=== PATIENT | female | born 1990 | race Asian ===

== ENCOUNTER 2017-03-13 08:00 | Outpatient (CLI) | payer MEDICAID ==
[2017-03-14 11:16] LABS: TEST RESULT REPORT (())
== END 2017-03-13 08:01 | disposition home or self-care (01) ==
LOC: LAB.N 08:00
PROVIDERS: ATTEND Nurse Practitioner Gerontology
DX: Z11.3 Encounter for screening for infections with a predominantly sexual mode of transmission (principal)
CPT/HCPCS: 36415; 81599; 86592; 87389; 87491; 87591

== ENCOUNTER 2017-12-05 08:00 | Outpatient (CLI) | payer MEDICAID ==
[2017-12-06 15:32] LABS: HIV AG/AB 4TH GEN NON-REACTIVE (NON-REACTIVE)
== END 2017-12-05 08:01 | disposition home or self-care (01) ==
LOC: LAB.N 08:00
PROVIDERS: ATTEND Nurse Practitioner Gerontology
DX: Z11.3 Encounter for screening for infections with a predominantly sexual mode of transmission (principal)
CPT/HCPCS: 36415; 81599; 86592; 87389; 87491; 87591

== ENCOUNTER 2017-12-19 08:00 | Outpatient (CLI) | payer BC, MEDICAID | END 2017-12-19 08:01 | disposition home or self-care (01) | LOC: LAB.R 08:00 | PROVIDERS: ATTEND Obstetrics & Gynecology | DX: Z11.3 Encounter for screening for infections with a predominantly sexual mode of transmission (principal) | CPT/HCPCS: 87491; 87591 ==

== ENCOUNTER 2018-02-06 08:29 | Outpatient (CLI) | payer MEDICAID ==
[2018-02-06 13:57] LABS: THYROID STIMULATING HORMONE 0.54 uIU/mL (0.34-5.60)
[2018-02-06 14:25] LABS: FOLLICLE STIMULATING HORMONE 1.5 mIU/mL
[2018-02-06 14:26] LABS: LUTEINIZING HORMONE 7.36 mIU/mL
== END 2018-02-06 08:30 | disposition home or self-care (01) ==
LOC: LAB.N 08:29
PROVIDERS: ATTEND Obstetrics & Gynecology
DX: N97.9 Female infertility, unspecified (principal)
CPT/HCPCS: 36415; 83001; 83002; 84144; 84443

== ENCOUNTER 2018-02-20 15:04 | Outpatient (CLI) | payer BC, MEDICAID ==
[2018-02-20 15:22] LABS: BASOPHILS % (AUTO) 0.8 %; EOSINOPHILS # (AUTO) 0.3 10^3/uL (0.0-0.7); EOSINOPHILS % (AUTO) 4.8 %; HGB - HEMOGLOBIN 13.1 g/dL (12.0-16.0); LYMPHOCYTES # (AUTO) 1.9 10^3/uL (1.5-3.5); LYMPHOCYTES % (AUTO) 29.9 %; MEAN CORPUSCULAR HEMOGLOBIN 31.2 pg (27.0-31.0); MEAN CORPUSCULAR HGB CONC 33.7 g/dL (32.0-36.0); MEAN CORPUSCULAR VOLUME 92.4 fL (81.0-99.0); MEAN PLATELET VOLUME 7.4 fL (7.9-10.8); MONOCYTES # (AUTO) 0.6 10^3/uL (0.0-1.0); MONOCYTES % (AUTO) 9.3 %; NEUTROPHILS # (AUTO) 3.4 10^3/uL (1.5-6.6); NEUTROPHILS % (AUTO) 55.2 %; PLT - PLATELET COUNT 302 10^3/uL (130-450); RED BLOOD COUNT 4.19 10^6/uL (4.20-5.40); RED CELL DISTRIBUTION WIDTH 12.9 % (12.0-15.0); WHITE BLOOD COUNT 6.2 x10^3/uL (4.8-10.8)
[2018-02-20 16:35] LABS: HCG UR QUAL NEGATIVE
== END 2018-02-20 15:05 | disposition home or self-care (01) ==
LOC: LAB 15:04
PROVIDERS: ATTEND Obstetrics & Gynecology
DX: Z01.812 Encounter for preprocedural laboratory examination (principal); N94.6 Dysmenorrhea, unspecified
CPT/HCPCS: 36415; 81025; 85025

== ENCOUNTER 2018-02-21 08:37 | Day surgery (SDC) | payer BC, MEDICAID ==
--- NOTE | 2018-02-21 07:15 | PREOP HISTORY & PHYSICAL ---
DATE OF SERVICE: 02/20/2018 Physician: Morgan Reinoso MD PREOP HISTORY AND PHYSICAL OF 02/20/2018 FOR ANTICIPATED PROCEDURE 02/21/2018 IDENTIFICATION: Patient is a 27-year-old G0, P0, female whose last menstrual period was 02/11/2018. CHIEF COMPLAINT: Painful pelvic pain and painful periods. HISTORY OF PRESENT ILLNESS: Patient states that she has pain with her periods, which is roughly 8/10. She will take Midol for this. She is able to function and able to work this, and she currently does not have to plan her life around her periods. She states this is quite severe and is getting worse with time. She also states that her menstrual flows anywhere from 5-7 days. She will pass clots for 2-3 of these days. She will pass some of these which are gonzalo size. She also complains of pelvic pain. PAST MEDICAL HISTORY: Patient denies any hypertensive, diabetic, cardiac, or pulmonary disease. PAST SURGICAL HISTORY: None. ALLERGIES: NONE KNOWN. MEDICATIONS: None. HABITS: Patient smokes 5 cigarettes per day. Denies use of alcohol or street drugs or tetrahydrocannabinol. SOCIAL HISTORY: Patient is currently single. She has a college education. She works as a software implementation specialist. FAMILY HISTORY: Negative for breast, ovarian or cervical cancer. She does have a maternal history of hypertension as well as mild stroke. PHYSICAL EXAMINATION GENERAL: Patient well-developed, well-nourished female. She is in no acute distress at this time. VITAL SIGNS: Normal. HEENT: Pupils are equal, round. Extraocular muscles are intact. There is no evidence of any scleral icterus. Mouth is clear. Thyroid is not palpably enlarged. HEART: Regular rate and rhythm without murmurs. LUNGS: Lung carey are clear without rales or wheezes. BACK: No spine or CVA tenderness noted. ABDOMEN: Unremarkable at this time. PELVIC: Examination performed on December 19 showed normal external genitalia. The vaginal vault was that of a nulliparous woman. The vaginal mucosa was noted to be normal without evidence of any abnormalities. Uterus is retroverted midline and no masses. This duplicated some of the pain she was complaining of the adnexa; however showed no masses, nontender, normal size. ASSESSMENT AND PLAN: Patient is a 27-year-old G0, P0, female with symptoms which are compatible for either endometriosis or adenomyosis. At this particular time, we will perform diagnostic laparoscopy with possible lysis of adhesion or cauterization of endometriotic implants. R&B, QA&A. TD: 02/20/2018 14:36 MTDD
[2018-02-21] MEDS ORDERED: ceFAZolin 2 GM/50 ML 2 GM/50 ML BAG IV ONE (09:01)
[2018-02-21] MEDS ORDERED: LACTATED RINGERS 1,000 ML IV ONE ×2 (09:21→12:10)
--- NOTE | 2018-02-21 09:24 | ANESTHESIA ---
Pre-Anesthesia VS, & Labs - Diagnosis dysmenorrhea suspect endemetriosis - Procedure Diagnostic Laparoscopy, cauterization of endometriosis,possible appendectomy Vital Signs: Temp Pulse Resp BP Pulse Ox 36.7 C 16 139/88 H 97 02/21/18 09:03 02/21/18 09:03 02/21/18 09:03 02/21/18 09:03 Height 5 ft 2 in Weight (kg) 66.4 kg - NPO >8 hours Last Fluid Intake: 4oz H2O at 7am - Is Patient ?: No Home Medications and Allergies Home Medications: Ambulatory Orders Medication Instructions Recorded Confirmed Cetirizine [ZyrTEC] 10 mg PO DAILY #20 tablet 02/04/16 Dexamethasone [Decadron] 4 mg PO DAILY #5 tablet 02/04/16 Fluconazole [Diflucan] 100 mg PO ONCE #2 tablet 02/04/16 Hydrocodone/Acetaminophen [[place] 1 each PO Q6H PRN #20 tablet 02/04/16 5-325 Tablet] Sulfamethoxazole/Trimethoprim 1 each PO BID #10 tablet 02/04/16 [Bactrim Ds Tablet] Allergies/Adverse Reactions: Allergies Allergy/AdvReac Type Severity Reaction Status Date / Time No Known Drug Allergies Allergy Verified 02/04/16 20:25 Anes History & Medical History - Anesthetic History Anesthesia Complications: reports: Other-see comment (never had surgery) Family history of Anesthesia Complications: Denies Family history of Malignant Hyperthermia: Denies - Airway/Dental Dental: WNL Neck Mobility: Normal Mallampati classification: I Thyromental Distance: greater than 6 cm - Medical History Cardiovascular: reports: None Pulmonary: reports: None Gastrointestinal: reports: None Urinary: reports: None Neuro: reports: Migraines Musculoskeletal: reports: None Endocrine/Autoimmune: reports: None Skin: reports: None Smoking Status: Current some day smoker Psychosocial: reports: Alcohol (rarely) Exam Respiratory: Lungs clear Cardiovascular: Regular rate, No murmurs Mental/Cognitive Status: Alert/Oriented X3 Plan Anesthesia Type: General Consent for Operative Procedure(s) Verified and Reviewed: Yes Code Status: Attempt Resuscitation ASA classification: 1-Healthy patient Is this case an emergency?: No
[2018-02-21] MEDS ORDERED: BUPIVACAINE 0.25%-EPI 1:200000 PF 30 ML VIAL ONE (09:41)
[2018-02-21] MEDS ORDERED: SCOPOLAMINE PATCH TOP ONE (10:15)
[2018-02-21] MEDS ORDERED: METHYLENE BLUE 0.5% 50 MG/10 ML AMPULE ONE (10:23)
[2018-02-21] MEDS ORDERED: BUPIVACAINE 0.25%-EPI 1:200000 PF 30 ML VIAL SUBQ ONE ×2 (11:07)
[2018-02-21] MEDS ORDERED: METHYLENE BLUE 0.5% 50 MG/10 ML AMPULE IR ONE ×2 (11:14)
[2018-02-21] MEDS ORDERED: KETOROLAC 30 MG/ML VIAL IVP ONE (12:15)
[2018-02-21] MEDS ORDERED: PROPOFOL 200 MG/20 ML VIAL IVP ONE (12:15)
[2018-02-21] MEDS ORDERED: GLYCOPYRROLATE 1 MG/5 ML VIAL IVP ONE (12:15)
[2018-02-21] MEDS ORDERED: fentaNYL 100 MCG/2 ML VIAL IVP ONE (12:15)
[2018-02-21] MEDS ORDERED: MIDAZOLAM 2 MG/2 ML VIAL IVP ONE (12:15)
[2018-02-21] MEDS ORDERED: ONDANSETRON 4 MG/2 ML VIAL IVP ONE (12:15)
[2018-02-21] MEDS ORDERED: NEOSTIGMINE 1 MG/1 ML 10 ML MDV IVP ONE (12:15)
[2018-02-21] MEDS ORDERED: DEXAMETHASONE 4 MG/ML VIAL IVP ONE (12:15)
[2018-02-21] MEDS ORDERED: ROCURONIUM 50 MG/5 ML VIAL IVP ONE (12:15)
[2018-02-21] MEDS: HYDROmorphone 1 MG/ML CARPUJECT ONE ×2 (12:18→12:23)
[2018-02-21] MEDS ORDERED: ACETAMINOPHEN 1,000 MG/100 ML 100 ML IV ONE (12:37)
[2018-02-21] MEDS: fentaNYL 100 MCG/2 ML VIAL ONE ×2 (13:07→13:19)
[2018-02-21 15:11] VITALS: BP 119/79
--- NOTE | 2018-02-21 18:06 | OPERATIVE REPORT ---
DATE OF SERVICE: 02/21/2018 Physician: Morgan Reinoso MD PREOPERATIVE DIAGNOSIS: Pelvic pain, dysmenorrhea. POSTOPERATIVE DIAGNOSIS: Pelvic pain, pelvic endometriosis, Oses-Easl-Sogupb perihepatic adhesions, patent fallopian tubes. PROCEDURE: Diagnostic laparoscopy with chromopertubation, peritoneal biopsy and fulguration of pelvic peritoneal endometriosis. SURGEON: Morgan Reinoso M.D. ANESTHESIA: Maria Esther Lee CRNA, general via endotracheal tube. FINDINGS: Multiple endometriosis peritoneal implants around the ovarian fossa as well as the cul-de-sac of Tejinder. The tubes were noted to be patent with good flow of methylene blue stained saline through both tubes. She also had perihepatic adhesions from previous infections of the pelvis. Her appendix appeared to be normal. COMPLICATIONS: None. ESTIMATED BLOOD LOSS: 10 mL. SPECIMENS TO PATHOLOGY: Left uterosacral peritoneum. DESCRIPTION OF PROCEDURE: Following adequate endotracheal anesthesia, the patient was placed in the dorsal lithotomy position in [facility]. Pelvic examination under anesthesia revealed the uterus which is anterior roughly 7 cm in size. The adnexa is not palpably enlarged. She was then prepped and draped in the usual fashion. A timeout was performed, at which time concerns were addressed. A speculum was placed in the vagina. The cervix was visualized, grasped with a single-tooth tenaculum. At this point, the coiled tubing operator's gloves were changed and then following local anesthesia with 0.25% Marcaine, a stab wound was made in the subumbilical area. Two towel clamps were then placed periumbilically and then a 5 mm trocar was placed under direct visualization. Care was to assure that it was entered in the peritoneal cavity. The trocar was removed and a 30-degree laparoscope was inserted. Two additional ports were placed both in the left and right lower quadrants following local anesthesia with 0.25% Marcaine and incision with a #11 blade. Both of these were placed under direct visualization. The pelvis was inspected with the aforementioned findings. Ovaries, uterus as well as cul-de-sac were visualized. Dilute methylene blue was then injected through the acorn uterine manipulator and there was evidence of good flow through both fallopian tubes. The appendix was visualized as well as photographed. The liver was visualized and the perihepatic adhesions were noted. These were not lysed because of the high probability of them reforming. Then, a biopsy was taken from a suspected endometriosis site on the right uterosacral ligament. Cautery was used for hemostasis. Electrocautery was then used to cauterize the multiple endometriotic implants in the ovarian fossa bilaterally as well as in the cul-de-sac. At this point, there was no evidence of any further bleeding. The pelvis was irrigated with copious amounts of sterile saline. There was no evidence of any bleeding from the biopsy site. The trocars were removed under direct visualization. As much of the CO2 was allowed to escape from the subumbilical port as possible. Then, this was also removed. The incisions were closed with 4-0 Monocryl subcuticular with Dermabond being used for the incisions themselves. There was some oozing from the subumbilical port, so this was dressed with a folded 4 x 4 with Tegaderm. The uterine manipulator was removed from the vagina. The patient tolerated the procedure well and was taken to the recovery in stable condition. Sponge and needle counts were correct. TD: 02/21/2018 12:57 GREGORIA
== END 2018-02-21 08:38 | disposition home or self-care (01) ==
LOC: SDS 08:37
PROVIDERS: ATTEND Obstetrics & Gynecology
PROC: 0U5F4ZZ Destruction of Cul-de-sac, Percutaneous Endoscopic Approach (ICD-10-PCS; 2018-02-21)
PROC: 3E0P8KZ Introduction of Other Diagnostic Substance into Female Reproductive, Via Natural or Artificial Opening Endoscopic (ICD-10-PCS; 2018-02-21)
PROC: 0UB44ZX Excision of Uterine Supporting Structure, Percutaneous Endoscopic Approach, Diagnostic (ICD-10-PCS; principal; 2018-02-21 10:00)
DX: N94.6 Dysmenorrhea, unspecified (principal); R10.2 Pelvic and perineal pain; N80.3 Endometriosis of pelvic peritoneum; K66.0 Peritoneal adhesions (postprocedural) (postinfection); F17.210 Nicotine dependence, cigarettes, uncomplicated
CPT/HCPCS: 49321; 58350; 58662; J0131; J0690; J1170; J3490; J7120

== ENCOUNTER 2019-06-04 17:31 | Emergency (ER) | payer BC, MEDICAID ==
[2019-06-04 17:39] VITALS: BP 145/102
[2019-06-04 17:51] LABS: BILIRUBIN,URINE NEGATIVE (NEGATIVE); GLUCOSE, URINE (UA) NEGATIVE (NEGATIVE); KETONES,URINE (UA) NEGATIVE (NEGATIVE); LEUKOCYTE ESTERASE, URINE NEGATIVE (NEGATIVE); NITRITE,URINE NEGATIVE (NEGATIVE); OCCULT BLOOD,URINE MODERATE (NEGATIVE); PROTEIN,URINE NEGATIVE (NEGATIVE); UROBILINOGEN,URINE 0.2 (NORMAL) E.U./dL (NORMAL)
[2019-06-04 18:01] LABS: BASOPHILS # (AUTO) 0.1 10^3/uL (0.0-0.1); EOSINOPHILS # (AUTO) 0.2 10^3/uL (0.0-0.7); EOSINOPHILS % (AUTO) 3.6 %; HGB - HEMOGLOBIN 14.1 g/dL (12.0-16.0); LYMPHOCYTES # (AUTO) 1.6 10^3/uL (1.5-3.5); LYMPHOCYTES % (AUTO) 25.8 %; MEAN CORPUSCULAR HEMOGLOBIN 31.1 pg (27.0-31.0); MEAN CORPUSCULAR HGB CONC 33.8 g/dL (32.0-36.0); MEAN CORPUSCULAR VOLUME 92.1 fL (81.0-99.0); MEAN PLATELET VOLUME 10.1 fL (7.9-10.8); MONOCYTES # (AUTO) 0.6 10^3/uL (0.0-1.0); MONOCYTES % (AUTO) 9.4 %; NEUTROPHILS # (AUTO) 3.6 10^3/uL (1.5-6.6); NEUTROPHILS % (AUTO) 59.9 %; PLT - PLATELET COUNT 285 10^3/uL (130-450); RED BLOOD COUNT 4.53 10^6/uL (4.20-5.40); RED CELL DISTRIBUTION WIDTH 12.1 % (12.0-15.0); WHITE BLOOD COUNT 6.1 x10^3/uL (4.8-10.8)
[2019-06-04 18:05] LABS: CLARITY,URINE CLEAR (CLEAR); HCG UR QUAL NEGATIVE
[2019-06-04 18:06] LABS: BACTERIA,URINE Few /HPF (None Seen); SPERM,URINE PRESENT; SQUAMOUS EPITHELIAL CELL,UR MANY Squamous (<= Few)
[2019-06-04 18:14] LABS: ALBUMIN 4.9 g/dL (3.2-5.5); ALBUMIN/GLOBULIN RATIO 1.5 (1.0-2.2); BILIRUBIN,TOTAL 0.4 mg/dL (0.2-1.0); CALCIUM 9.9 mg/dL (8.5-10.3); CREATININE 0.7 mg/dL (0.4-1.0); TOTAL PROTEIN 8.1 g/dL (6.7-8.2)
--- NOTE | 2019-06-04 18:50 | ED Physician Documentation ---
History of Present Illness - Stated complaint Stated Complaint: FEMALE /ABD, BACK PX - Chief complaint Chief Complaint: Abd Pain - History obtained from History obtained from: Patient - History of Present Illness Pain level max: 3 Pain level now: 2 - Additonal information Additional information: 28-year-old female presents to the emergency department stating that she gets occasional lower abdominal cramping. This is been going on for several months. Nothing seems to make it better or worse. She had intercourse with her signific ant other today and noticed a small amount of bleeding afterwards. Has a history of endometriosis. Denies any changes in sexual partners. No itching. No discharge. Review of Systems Constitutional: denies: Fever, Chills GI: denies: Nausea, Vomiting, Diarrhea : denies: Now EGA Skin: denies: Rash Musculoskeletal: denies: Neck pain, Back pain Neurologic: denies: Headache PD PAST MEDICAL HISTORY - Past Medical History Neuro: Migraines - Past Surgical History Past Surgical History: No - Present Medications Home Medications: Ambulatory Orders Medication Instructions Recorded Confirmed Cetirizine [ZyrTEC] 10 mg PO DAILY #20 tablet 02/04/16 Fluconazole [Diflucan] 100 mg PO ONCE #2 tablet 02/04/16 Hydrocodone/Acetaminophen [[place] 1 each PO Q6H PRN #20 tablet 02/04/16 5-325 Tablet] Sulfamethoxazole/Trimethoprim 1 each PO BID #10 tablet 02/04/16 [Bactrim Ds Tablet] dexAMETHasone [Decadron] 4 mg PO DAILY #5 tablet 02/04/16 Fluconazole [Diflucan] 150 mg PO ONCE #1 tablet 06/04/19 Metronidazole [Flagyl] 500 mg PO BID #14 tablet 06/04/19 - Allergies Allergies/Adverse Reactions: Allergies Allergy/AdvReac Type Severity Reaction Status Date / Time No Known Drug Allergies Allergy Verified 02/04/16 20:25 - Social History Does the pt smoke?: Yes Smoking Status: Current some day smoker Does the pt drink ETOH?: No Does the pt have substance abuse?: No - Immunizations Immunizations are current?: Yes PD ED PE NORMAL - Vitals Vital signs reviewed: Yes - General General: Alert and oriented X 3, No acute distress - HEENT HEENT: Moist mucous membranes - Neck Neck: Supple, no meningeal sign - Cardiac Cardiac: RRR - Respiratory Respiratory: No respiratory distress, Clear bilaterally - Abdomen Abdomen: Soft, Non tender, Non distended - Female Female : Pt declined - Derm Derm: Warm and dry - Extremities Extremities: No edema - Neuro Neuro: Alert and oriented X 3 Results - Vitals Vitals: Vital Signs - 24 hr 06/04/19 17:35 Temperature 36.5 C Heart Rate 69 Respiratory 18 Rate Blood Pressure 145/102 H O2 Saturation 100 Oxygen O2 Source Room air - Labs Labs: Laboratory Tests 06/04/19 06/04/19 06/04/19 17:42 17:55 17:55 WBC 6.1 RBC 4.53 Hgb 14.1 Hct 41.7 MCV 92.1 MCH 31.1 H MCHC 33.8 RDW 12.1 Plt Count 285 MPV 10.1 Neut # (Auto) 3.6 Lymph # (Auto) 1.6 [place] # (Auto) 0.6 Eos # (Auto) 0.2 Baso # (Auto) 0.1 Absolute Nucleated RBC 0.00 Nucleated RBC % 0.0 Sodium 140 Potassium 3.8 Chloride 103 Carbon Dioxide 27 Anion Gap 10.0 BUN 13 Creatinine 0.7 Estimated GFR (MDRD) 100 Glucose 95 Calcium 9.9 Total Bilirubin 0.4 AST 25 ALT 22 Alkaline Phosphatase 47 Total Protein 8.1 Albumin 4.9 Globulin 3.2 Albumin/Globulin Ratio 1.5 Lipase 41 Urine Color YELLOW Urine Clarity CLEAR Urine pH 6.0 Ur Specific [place] 1.020 Urine Protein NEGATIVE Urine Glucose (UA) NEGATIVE Urine Ketones NEGATIVE Urine Occult Blood MODERATE H Urine Nitrite NEGATIVE Urine Bilirubin NEGATIVE Urine Urobilinogen 0.2 (NORMAL) Ur Leukocyte Esterase NEGATIVE Urine RBC 6-10 H Urine WBC 4-5 Ur Squamous Epith Cells MANY Squamous H Urine Bacteria Few Urine Sperm PRESENT Ur Microscopic Review INDICATED Urine Culture Comments NOT INDICATED Urine HCG, Qual NEGATIVE C. glabrata (PCR) C. krusei (PCR) Tracey species DNA T. vaginalis (PCR) Bact Vaginosis (PCR) 06/04/19 18:52 WBC RBC Hgb Hct MCV MCH MCHC RDW Plt Count MPV Neut # (Auto) Lymph # (Auto) [place] # (Auto) Eos # (Auto) Baso # (Auto) Absolute Nucleated RBC Nucleated RBC % Sodium Potassium Chloride Carbon Dioxide Anion Gap BUN Creatinine Estimated GFR (MDRD) Glucose Calcium Total Bilirubin AST ALT Alkaline Phosphatase Total Protein Albumin Globulin Albumin/Globulin Ratio Lipase Urine Color Urine Clarity Urine pH Ur Specific [place] Urine Protein Urine Glucose (UA) Urine Ketones Urine Occult Blood Urine Nitrite Urine Bilirubin Urine Urobilinogen Ur Leukocyte Esterase Urine RBC Urine WBC Ur Squamous Epith Cells Urine Bacteria Urine Sperm Ur Microscopic Review Urine Culture Comments Urine HCG, Qual C. glabrata (PCR) NEGATIVE C. krusei (PCR) NEGATIVE Tracey species DNA POSITIVE A T. vaginalis (PCR) NEGATIVE Bact Vaginosis (PCR) POSITIVE A PD MEDICAL DECISION MAKING - ED course Complexity details: reviewed results, re-evaluated patient, considered differential, d/w patient ED course: She declines a pelvic examination. She self swabbed here. I will call her with the results of her vaginal swabs. Patient is comfortable with this plan. Results of the swabs were called to the patient. Diflucan and Flagyl were E prescribed to José Miguel in [place] for her. Patient counseled regarding signs and symptoms for which I believe and urgent re-evaluation would be necessary. Patient with good understanding of and agreement to plan and is comfortable going home at this time This document was made in part using voice recognition software. While efforts are made to proofread this document, sound alike and grammatical errors may occur. Departure - Departure Disposition: 01 Home, Self Care Clinical Impression: Bacterial vaginitis, Vaginal yeast infection Abdominal pain Qualifiers: Abdominal location: unspecified location Qualified Code(s): R10.9 - Unspecified abdominal pain Condition: Good Instructions: ED Abdominal Pain Unkn Cause Follow-Up: Nataliia Lowery WEALTH MANAGEMENT CONSULTANT [Primary Care Provider] - Within 1 week Prescriptions: Fluconazole [Diflucan] 150 mg PO ONCE #1 tablet Metronidazole [Flagyl] 500 mg PO BID #14 tablet Comments: The cause of your symptoms is unclear today. Follow-up with your doctor for further care. We will call you with the results of the swab in a few hours. If you do not hear from us by approximately 10 PM, you can call the emergency department at [phone] and obtain your results. Discharge Date/Time: 06/04/19 19:08
[2019-06-04 21:12] LABS: CANDIDA GROUP DNA POSITIVE (NEGATIVE); CANDIDA KRUSEI DNA NEGATIVE (NEGATIVE); TRICHOMONAS VAGINALIS DNA NEGATIVE (NEGATIVE)
[2019-06-04 22:15] LABS: TRICHOMONAS VAGINALIS DNA NEGATIVE (NEGATIVE)
== END 2019-06-04 19:08 | disposition home or self-care (01) ==
LOC: ED 17:31
DX: N76.0 Acute vaginitis (principal); B96.89 Other specified bacterial agents as the cause of diseases classified elsewhere; B37.3 Candidiasis of vulva and vagina; R10.30 Lower abdominal pain, unspecified; F17.200 Nicotine dependence, unspecified, uncomplicated
CPT/HCPCS: 36415; 80053; 81001; 81003; 81025; 83690; 85025; 87086; 87491; 87591; 87661; 87801; 99283; 99284

== ENCOUNTER 2022-01-16 13:38 | Emergency (ER) | payer BC ==
[2022-01-16 13:48] VITALS: BP 134/100
[2022-01-16] MEDS ORDERED: ONDANSETRON ODT 4 MG TABLET TL STA (13:49)
[2022-01-16 14:03] LABS: BASOPHILS # (AUTO) 0.1 10^3/uL (0.0-0.1); BASOPHILS % (AUTO) 0.8 %; EOSINOPHILS # (AUTO) 0.5 10^3/uL (0.0-0.7); HCT - HEMATOCRIT 42.6 % (37.0-47.0); HGB - HEMOGLOBIN 14.1 g/dL (12.0-16.0); LYMPHOCYTES # (AUTO) 1.9 10^3/uL (1.5-3.5); LYMPHOCYTES % (AUTO) 25.8 %; MEAN CORPUSCULAR HEMOGLOBIN 29.6 pg (27.0-31.0); MEAN CORPUSCULAR HGB CONC 33.1 g/dL (32.0-36.0); MEAN CORPUSCULAR VOLUME 89.3 fL (81.0-99.0); MEAN PLATELET VOLUME 9.4 fL (7.9-10.8); MONOCYTES # (AUTO) 0.5 10^3/uL (0.0-1.0); MONOCYTES % (AUTO) 7.3 %; NEUTROPHILS # (AUTO) 4.4 10^3/uL (1.5-6.6); NEUTROPHILS % (AUTO) 58.8 %; PLT - PLATELET COUNT 306 10^3/uL (130-450); RED BLOOD COUNT 4.77 10^6/uL (4.20-5.40); RED CELL DISTRIBUTION WIDTH 12.9 % (12.0-15.0); WHITE BLOOD COUNT 7.4 x10^3/uL (4.8-10.8)
[2022-01-16 14:33] LABS: ALBUMIN 4.3 g/dL (3.2-5.5); ALBUMIN/GLOBULIN RATIO 1.3 (1.0-2.2); BILIRUBIN,TOTAL 0.7 mg/dL (0.2-1.0); CALCIUM 9.2 mg/dL (8.5-10.3); CREATININE 0.6 mg/dL (0.4-1.0); POTASSIUM 4.1 mmol/L (3.5-5.0); TOTAL PROTEIN 7.5 g/dL (6.7-8.2)
== END 2022-01-16 16:01 | disposition left against medical advice (07) ==
LOC: ED 13:38
DX: Z53.21 Procedure and treatment not carried out due to patient leaving prior to being seen by health care provider (principal)
CPT/HCPCS: 36415; 80053; 80320; 83690; 85025

== ENCOUNTER 2023-11-01 23:59 | Emergency (ER) | payer BC, MEDICAID, OTHER ==
--- NOTE | 2023-11-02 02:14 | ED Physician Documentation ---
History of Present Illness - Stated complaint Stated Complaint: NUMBNESS IN ARMS/LEGS - Chief complaint Chief Complaint: Neuro - History obtained from History obtained from: Patient - Additonal information Additional information: HPI from patient. Patient c/o generalized paresthesias, most pronounced in BUE/BLE, episodic over past few months, becoming more frequent and intense. She had an episode earlier today while driving. No LOC, denies weakness, lightheadedness. No apparent inciting/provoking circumstances or factors, and symptoms resolve without specific intervention. Denies headache, visual changes. Review of Systems Constitutional: denies: Fever, Chills, Sweats Eyes: denies: Loss of vision, Decreased vision, Photophobia Cardiac: reports: Reviewed and negative Respiratory: reports: Reviewed and negative : denies: Incontinent Musculoskeletal: denies: Neck pain, Back pain Neurologic: reports: Numbness. denies: Generalized weakness, Focal weakness, Near syncope, Syncope, Confused, Altered mental status, Headache PD PAST MEDICAL HISTORY - Past Medical History Past Medical History: Yes Cardiovascular: None Respiratory: None Neuro: Migraines Endocrine/Autoimmune: None GI: None PUBLIC RELATIONS STUDIES DIRECTOR: None : None HEENT: None Psych: Anxiety Musculoskeletal: None Derm: None - Past Surgical History Past Surgical History: No - Present Medications Home Medications: Ambulatory Orders Medication Instructions Recorded Confirmed Cetirizine [ZyrTEC] 10 mg PO DAILY #20 tablet 02/04/16 11/02/23 Escitalopram Oxalate 20 mg PO DAILY 11/02/23 11/02/23 - Allergies Allergies/Adverse Reactions: Allergies Allergy/AdvReac Type Severity Reaction Status Date / Time No Known Drug Allergies Allergy Verified 01/16/22 13:48 - Social History Does the pt smoke?: Yes Smoking Status: Current every day smoker Does the pt drink ETOH?: No Does the pt have substance abuse?: No - Immunizations Immunizations are current?: Yes - POLST Patient has POLST: No PD ED PE NORMAL - Vitals Vital signs reviewed: Yes - General General: Alert and oriented X 3, No acute distress, Well developed/nourished - HEENT HEENT: PERRL, EOMI, Moist mucous membranes - Cardiac Cardiac: RRR, No murmur, No gallop, No rub - Respiratory Respiratory: No respiratory distress, Clear bilaterally - Neuro Neuro: Alert and oriented X 3, punching machine operator 2-12 intact, No motor deficit, No sensory deficit, Normal speech Eye Opening: Spontaneous Motor: Obeys Commands Verbal: Oriented GCS Score: 15 Results - Vitals Vitals: Oxygen O2 Source Room air - Labs Labs: Laboratory Tests 11/02/23 11/02/23 02:36 02:36 WBC 11.8 H RBC 4.42 Hgb 13.2 Hct 39.8 MCV 90.0 MCH 29.9 MCHC 33.2 RDW 12.0 Plt Count 336 MPV 9.3 Neut # (Auto) Not Reportable Lymph # (Auto) Not Reportable [place] # (Auto) Not Reportable Eos # (Auto) Not Reportable Baso # (Auto) Not Reportable Absolute Nucleated RBC Not Reportable Total Counted 100 Band Neuts % (Manual) 1 Abnorm Lymph % (Manual) 0 Nucleated RBC % Not Reportable Neutrophils # (Manual) 6.3 Lymphocytes # (Manual) 2.4 Monocytes # (Manual) 1.2 H Eosinophils # (Manual) 1.8 H Basophils # (Manual) 0.2 H Differential Comment MANUAL DIFFERENTIAL Platelet Estimate NORMAL (130-450,000) RBC Morph Micro Appear NORMAL APPEARANCE Sodium 135 Potassium 3.5 Chloride 102 Carbon Dioxide 24 Anion Gap 9.0 BUN 9 Creatinine 0.7 Estimated GFR (MDRD) 97 Glucose 89 Calcium 9.6 - Rads (name of study) CTH Relevant Findings:: Prelim report reviewed, See rad report PD Medical Decision Making - ED course ED course: No concerning nor diagnostic findings on CBC (mild leukocytosis noted), BMP, CTH. Normal PE, normal vital signs (134/74 BP noted). Etiology of symptoms is not apparent at this time. Results reviewed with patient, return precautions discussed. I advised her to contact PMD in the morning to arrange for next available appointment for reevaluation Departure - Departure Disposition: 01 Home, Self Care Clinical Impression: Paresthesia Condition: Good Instructions: ED Paraesthesias Comments: There were no concerning findings on tonight's blood tests; as we discussed, your white blood cell count was very mildly elevated. This is a non-specific finding and it is not elevated to a concerning extent. The CT scan of your head was unremarkable except for inflammation of the sinuses that suggest sinusitis. At this time, specific treatment (such as an antibiotic) is not indicated. The sinus inflammation is also a likely explanation for your mildly elevated white blood cell count. The cause of your symptoms is not apparent at this time. Is very important that you follow-up in the outpatient setting with your primary care provider, next available appointment, for reevaluation. Forms: Activity restrictions Discharge Date/Time: 11/02/23 04:32
[2023-11-02 02:40] LABS: BASOPHILS % (AUTO) 0.8 %; EOSINOPHILS % (AUTO) 10.5 %; HCT - HEMATOCRIT 39.8 % (37.0-47.0); HGB - HEMOGLOBIN 13.2 g/dL (12.0-16.0); LYMPHOCYTES % (AUTO) 22.7 %; MEAN CORPUSCULAR HEMOGLOBIN 29.9 pg (27.0-31.0); MEAN CORPUSCULAR HGB CONC 33.2 g/dL (32.0-36.0); MEAN PLATELET VOLUME 9.3 fL (7.9-10.8); MONOCYTES % (AUTO) 10.4 %; NEUTROPHILS % (AUTO) 55.3 %; PLT - PLATELET COUNT 336 10^3/uL (130-450); RED BLOOD COUNT 4.42 10^6/uL (4.20-5.40); WHITE BLOOD COUNT 11.8 x10^3/uL (4.8-10.8)
[2023-11-02 02:46] LABS: ABNORMAL LYMPHS % (MANUAL) 0 %
[2023-11-02 02:57] LABS: BAND NEUTROPHILS % (MANUAL) 1 %; BASOPHILS # (MANUAL) 0.2 10^3/uL (0-0.1); BASOPHILS % (MANUAL) 2 %; CALCIUM 9.6 mg/dL (8.5-10.3); CREATININE 0.7 mg/dL (0.6-1.3); DIFFERENTIAL COMMENT MANUAL DIFFERENTIAL; EOSINOPHILS # (MANUAL) 1.8 10^3/uL (0-0.7); LYMPHOCYTES # (MANUAL) 2.4 10^3/uL (1.5-3.5); LYMPHOCYTES % (MANUAL) 20 %; MONOCYTES # (MANUAL) 1.2 10^3/uL (0.0-1.0); NEUTROPHILS # (MANUAL) 6.3 10^3/uL (1.5-6.6); PLATELET ESTIMATE, MANUAL NORMAL (130-450,000) (NORMAL); POTASSIUM 3.5 mmol/L (3.5-4.5); RBC MORPHOLOGY (MULTIPLE) NORMAL APPEARANCE (NORMAL)
[2023-11-02 04:36] VITALS: BP 134/74; O2SAT 98
--- NOTE | 2023-11-02 08:07 | CT Report ---
PROCEDURE: Head WO INDICATIONS: paresthesias TECHNIQUE: Noncontrast 4.5 mm thick angled axial sections acquired from the foramen magnum to the vertex. For r adiation dose reduction, the following was used: automated exposure control, adjustment of mA and/or kV according to patient size. COMPARISON: None. FINDINGS: Image quality: Excellent. CSF spaces: Basal cisterns are patent. No extra-axial fluid collections. Ventricles are normal in size and shape. Brain: No midline shift. No intracranial masses or hemorrhage. Rueda-white matter interface is norm al. Skull and face: Calvarium and visualized facial bones are intact, without suspicious lesions. Sinuses: Patchy ethmoid opacification. Minimal bilateral maxillary sinus mucosal thickening. Other pa ranasal sinuses and mastoids are clear. IMPRESSION: No acute intracranial pathology. Mild chronic sinus disease. Findings are concordant with preliminary interpretation provided by [facility]. Reviewed by: Eric Polo MD on 11/02/2023 8:06 AM PDT Approved by: Eric Polo MD on 11/02/2023 8:06 AM PDT Station ID: [id number]
== END 2023-11-02 04:32 | disposition home or self-care (01) ==
LOC: ED 23:59
DX: D72.829 Elevated white blood cell count, unspecified (principal); F17.200 Nicotine dependence, unspecified, uncomplicated; Z79.899 Other long term (current) drug therapy
CPT/HCPCS: 36415; 80048; 85025; 99284

== ENCOUNTER 2024-04-02 15:19 | Outpatient (CLI) | payer OTHER, MEDICAID ==
[2024-04-02 18:05] LABS: BASOPHILS # (AUTO) 0.1 10^3/uL (0.0-0.1); BASOPHILS % (AUTO) 0.6 %; EOSINOPHILS # (AUTO) 0.5 10^3/uL (0.0-0.7); EOSINOPHILS % (AUTO) 6.1 %; HCT - HEMATOCRIT 38.2 % (37.0-47.0); HGB - HEMOGLOBIN 12.5 g/dL (12.0-16.0); LYMPHOCYTES # (AUTO) 2.3 10^3/uL (1.5-3.5); LYMPHOCYTES % (AUTO) 28.3 %; MEAN CORPUSCULAR HEMOGLOBIN 29.3 pg (27.0-31.0); MEAN CORPUSCULAR HGB CONC 32.7 g/dL (32.0-36.0); MEAN CORPUSCULAR VOLUME 89.7 fL (81.0-99.0); MEAN PLATELET VOLUME 9.8 fL (7.9-10.8); MONOCYTES # (AUTO) 0.6 10^3/uL (0.0-1.0); MONOCYTES % (AUTO) 7.8 %; NEUTROPHILS # (AUTO) 4.5 10^3/uL (1.5-6.6); NEUTROPHILS % (AUTO) 56.2 %; PLT - PLATELET COUNT 370 10^3/uL (130-450); RED BLOOD COUNT 4.26 10^6/uL (4.20-5.40); RED CELL DISTRIBUTION WIDTH 11.8 % (12.0-15.0)
[2024-04-02 18:29] LABS: ALBUMIN/GLOBULIN RATIO 1.5 (1.0-2.2); BILIRUBIN,TOTAL 0.2 mg/dL (0.2-1.0); CALCIUM 9.1 mg/dL (8.5-10.3); CREATININE 0.7 mg/dL (0.6-1.3); TOTAL PROTEIN 6.7 g/dL (6.4-8.9)
[2024-04-02 18:34] LABS: THYROID STIMULATING HORMONE 0.29 uIU/mL (0.34-5.60)
[2024-04-02 21:30] LABS: ESTIMATED AVERAGE GLUCOSE 105 mg/dL (70-100); HEMOGLOBIN A1c% 5.3 % (4.27-6.07)
== END 2024-04-02 15:20 | disposition home or self-care (01) ==
LOC: LAB.N 15:19
DX: R53.82 Chronic fatigue, unspecified (principal); K14.8 Other diseases of tongue
CPT/HCPCS: 36415; 80053; 83036; 84439; 84443; 85025; 87389